=== PATIENT | female | born 1980 | race Asian ===

== ENCOUNTER 2020-12-01 14:06 | Inpatient (IN) ==
[2020-12-01] MEDS ORDERED: LACTATED RINGER'S 1,000 ML IV PRN (14:30)
[2020-12-01] MEDS ORDERED: OXYTOCIN 30 UNITS/500 ML BAG IV PRN ×3 (14:30→18:53)
[2020-12-01] MEDS ORDERED: PENICILLIN G POTASSIUM 3 MU in DEXTROSE 5% 100 ML IV PRN (14:30)
[2020-12-01] MEDS ORDERED: PENICILLIN G POTASSIUM 6 MU in DEXTROSE 5% 250 ML IV STA (14:34)
--- NOTE | 2020-12-01 14:43 | Obstetrical Progress Note ---
Date of Service December 01, 2020 Subjective Admit Note 40 F P2002 at 37 weeks admitted to L&D from office in labor. Cervix is 5/60/- 2/vertex/soft. GBS is positive and will start antibiotics. Covid is pending. FHT Cat 1. Will admit in early labor and augment contractions with Oxytocin. Results & Data ([facility]) Vital Signs (Past 12 Hours) Vital Signs Pulse BP 12/01/20 14:19 89 134/77
[2020-12-01] MEDS ORDERED: OXYTOCIN 30 UNITS/500 ML BAG IV SCH (14:45)
[2020-12-01 15:18] LABS: Hematocrit (blood only) 38.8 % (37-47); Mean Corpuscular Hemoglobin 30.9 pg (25-34); Mean Corpuscular Hgb Conc 33.5 g/dL (32-36); Mean Corpuscular Volume 92.2 fL (80-100); Mean Platelet Volume 11.2 fL (7.4-10.4); Platelet Count 214 K/uL (130-400); RDW Coefficient of Variation 13.4 % (11.5-14.5); RDW Standard Deviation 45.1 fL (36.4-46.3); Red Blood Count 4.21 M/uL (4.2-5.4); White Blood Count 11.92 K/uL (4.8-10.8)
--- NOTE | 2020-12-01 17:39 | Obstetrical Progress Note ---
Date of Service December 01, 2020 Assessment & Plan Admission and Anticipated Discharge Date Admission Date: December 01, 2020 Physical Exam Genitourinary: Manual OB Exam: + cervical dilation 7 cm, + cervical effacement 90%, + station 0 and + amniotic fluid clear OB Exam Monitor Tracing: + external FHT monitor used, + external uterine monitor used, + category I and + normal FHT variability AROM with Amni-hook with clear fluid noted Results & Data ([facility]) Vital Signs (Past 12 Hours) Vital Signs Temp Pulse Resp BP 12/01/20 16:45 92 H 127/79 12/01/20 16:36 90 143/85 H 12/01/20 14:27 36.8 C 16 12/01/20 14:19 89 134/77
--- NOTE | 2020-12-01 18:20 | Delivery Summary ---
Vaginal Delivery Summary Date of Service December 01, 2020 Vaginal Delivery Summary Delivery Note live female over intact perineum with Apgars 7/9/ Cord blood collection done followed by spontaneous delivery of intact placenta, No tears. EBL 100 ml. Final sponge and instrument count are correct. Mom and baby stable.
[2020-12-01] MEDS ORDERED: IBUPROFEN 600 MG TAB PO ONE (18:23)
[2020-12-01] MEDS ORDERED: IBUPROFEN 600 MG TAB PO PRN (18:53)
[2020-12-01] MEDS ORDERED: DIPHTHERIA/TETANUS/PERTUSSIS 0.5 ML SYR/VIAL IM ONE (18:53)
[2020-12-01] MEDS ORDERED: ACETAMINOPHEN 325 MG TAB PO PRN (18:53)
[2020-12-01] MEDS ORDERED: SUPERCREAM 0.870% 15 GM JAR EXT PRN (18:53)
[2020-12-01] MEDS ORDERED: HYDROCORTISONE ACETATE 25 MG SUPP PR PRN (18:53)
[2020-12-01] MEDS ORDERED: BENZOCAINE 20% AER SPR 82.5 GM CAN EXT PRN (18:53)
[2020-12-01] MEDS ORDERED: bisacodyL 10 MG SUPP PR PRN (18:53)
[2020-12-02 06:30] LABS: Hematocrit (blood only) 37.7 % (37-47); Hemoglobin 12.8 g/dL (12.0-16.0); Mean Corpuscular Hemoglobin 31.6 pg (25-34); Mean Corpuscular Volume 93.1 fL (80-100); Mean Platelet Volume 11.3 fL (7.4-10.4); Platelet Count 207 K/uL (130-400); RDW Coefficient of Variation 13.5 % (11.5-14.5); RDW Standard Deviation 45.7 fL (36.4-46.3); Red Blood Count 4.05 M/uL (4.2-5.4); White Blood Count 13.91 K/uL (4.8-10.8)
[2020-12-02] MEDS ORDERED: PRENATAL VITAMIN 1 TAB PO SCH (08:00)
--- NOTE | 2020-12-02 08:03 | Obstetrical Progress Note ---
Date of Service December 02, 2020 Assessment & Plan Admission and Anticipated Discharge Date Admission Date: December 01, 2020 Subjective Patient is seen and examined. Vital Signs Temp Pulse Pulse Resp BP BP Pulse Ox 12/02/20 07:18 36.9 C 89 16 129/74 95 12/02/20 03:00 36.8 C 89 20 132/73 12/01/20 23:50 36.8 C 81 18 137/83 12/01/20 21:15 36.8 C 89 20 134/80 96 12/01/20 20:11 102 H 121/60 12/01/20 20:08 37.1 C 18 Lab Results 12/01/20 12/01/20 12/01/20 Range/Units 14:37 14:37 14:42 WBC 11.92 H (4.8-10.8) K/uL RBC 4.21 (4.2-5.4) M/uL Hgb 13.0 (12.0-16.0) g/dL Hct 38.8 (37-47) % MCV 92.2 (80-100) fL MCH 30.9 (25-34) pg MCHC 33.5 (32-36) g/dL RDW Std Deviation 45.1 (36.4-46.3) fL RDW Coeff of Itz 13.4 (11.5-14.5) % Plt Count 214 (130-400) K/uL MPV 11.2 H (7.4-10.4) fL COVID-19 Eval [facility] [facility] [place] SARS-CoV-2, RNA, NAAT NEGATIVE (NEGATIVE) 12/02/20 Range/Units 06:16 WBC 13.91 H (4.8-10.8) K/uL RBC 4.05 L (4.2-5.4) M/uL Hgb 12.8 (12.0-16.0) g/dL Hct 37.7 (37-47) % MCV 93.1 (80-100) fL MCH 31.6 (25-34) pg MCHC 34.0 (32-36) g/dL RDW Std Deviation 45.7 (36.4-46.3) fL RDW Coeff of Izt 13.5 (11.5-14.5) % Plt Count 207 (130-400) K/uL MPV 11.3 H (7.4-10.4) fL COVID-19 Eval Order SARS-CoV-2, RNA, NAAT (NEGATIVE) She feels well, no complaints. Desires d/c Ambulating without dizziness Voiding without difficulty Tolerating regular diet with out N&V Bleeding is minimal No fever/ chills/ CP/ SOB/ N&V/ Leg pain Breast feeding without problems PE: General: Alert, orientedx3, NAD Abd: soft, NT, fundus firm, below Umbilicus Perineum intact, Lochia rubra minimal Ext; NT, no edema AP: 40 yo s/p , ppd# 1 VSS Afebrile doing well Continue routine care Desires d/c Discussed when to call All questions were answered D/C home after 6 pm with baby Results & Data ([facility]) Vital Signs (Past 12 Hours) Vital Signs Temp Pulse Pulse Resp BP BP Pulse Ox 12/02/20 07:18 36.9 C 89 16 129/74 95 12/02/20 03:00 36.8 C 89 20 132/73 12/01/20 23:50 36.8 C 81 18 137/83 12/01/20 21:15 36.8 C 89 20 134/80 96 12/01/20 20:11 102 H 121/60 12/01/20 20:08 37.1 C 18
[2020-12-02] MEDS ORDERED: NON-FORMULARY MEDICATION (Prenat.Vits,Cal,Min-Iron-Folic Tablet) PO SCH (09:00)
[2020-12-02] MEDS ORDERED: bisacodyL 5 MG TABEC PO SCH (20:00)
[2020-12-02] MEDS: DOCUSATE SODIUM 100 MG CAP PO SCH (21:20)
[2020-12-03 06:18] LABS: Hematocrit (blood only) 35.8 % (37-47); Hemoglobin 12.2 g/dL (12.0-16.0)
[2020-12-03] MEDS: DOCUSATE SODIUM 100 MG CAP PO SCH (08:52)
--- NOTE | 2020-12-03 09:37 | Obstetrical Progress Note ---
Date of Service December 03, 2020 Assessment & Plan Admission and Anticipated Discharge Date Admission Date: December 01, 2020 Subjective PPD#2 doing well tolerating diet passing gas out of bed Physical Exam Constitutional: WD/WN, vitals as above well developed and comfortable abdomen soft no edema neg Dominik's for d/c today Results & Data ([facility]) Vital Signs (Past 12 Hours) Vital Signs Temp Pulse Pulse Resp BP Pulse Ox 12/03/20 07:37 36.6 C 77 18 121/81 97 12/02/20 23:35 36.6 C 75 18 127/84 97 Laboratory Results Laboratory Results - last 72 hr 12/01/20 12/01/20 12/01/20 14:37 14:37 14:42 WBC 11.92 H RBC 4.21 Hgb 13.0 Hct 38.8 MCV 92.2 MCH 30.9 MCHC 33.5 RDW Std Deviation 45.1 RDW Coeff of Itz 13.4 Plt Count 214 MPV 11.2 H COVID-19 Eval [facility] [place] SARS-CoV-2, RNA, NAAT NEGATIVE 12/02/20 12/03/20 06:16 06:01 WBC 13.91 H RBC 4.05 L Hgb 12.8 12.2 Hct 37.7 35.8 L MCV 93.1 MCH 31.6 MCHC 34.0 RDW Std Deviation 45.7 RDW Coeff of Itz 13.5 Plt Count 207 MPV 11.3 H COVID-19 Eval Order SARS-CoV-2, RNA, NAAT
== END 2020-12-03 11:45 | disposition home or self-care (01) | DRG 807 ==
LOC: OPB 14:06 → 4S2 14:12